=== PATIENT | female | born 2000 | race Caucasian/White ===

== ENCOUNTER 2022-08-30 23:14 | Emergency (ER) | payer MEDICAID ==
[~2022-08-30] VITALS: Ht 149.9 cm; Wt 75.7 kg
[2022-08-30 23:34] VITALS: BP_SYST 127
--- NOTE | 2022-08-30 23:34 | NUR ---
Patient triaged and placed in ER bed 7. Bed placed in lowest position and side rails up. Report given to [facility] RN for continuity of care. Instructed patient to notify ED staff for any changes in condition or worsening of symptoms while waiting to be seen by a provider. Patient verbalized understanding.
[2022-08-31] MEDS ORDERED: LIDOCAINE 2%, 20 ML MDV INJ ONE (00:15)
[2022-08-31] MEDS ORDERED: BACITRACIN ZINC 15 GM TOPICAL OINTMENT TP ONE (00:15)
--- NOTE | 2022-08-31 00:19 | NUR ---
ER at bedside examining patient.
[2022-08-31] MEDS ORDERED: BACITRACIN 1 GM OINT TP ONE (01:30)
[2022-08-31] MEDS ORDERED: BACI15OI13 TP (01:49)
[2022-08-31 02:09] VITALS: BP_SYST 122
--- NOTE | 2022-08-31 02:09 | NUR ---
Patient given written and verbal discharge instructions and verbalizes understanding. ER MD discussed with patient the results and treatment provided. Patient in stable condition. ID arm band removed. Rx of BACITRACIN given. Patient educated on pain management and to follow up with PMD. Pain Scale 0/10. Opportunity for questions provided and answered. Medication side effect fact sheet provided.
== END 2022-08-31 02:09 | disposition home or self-care (01) ==
LOC: SED 23:14
DX: S61.210A Laceration without foreign body of right index finger without damage to nail, initial encounter (principal); Z79.899 Other long term (current) drug therapy; W26.0XXA Contact with knife, initial encounter; Y93.89 Activity, other specified; Y92.89 Other specified places as the place of occurrence of the external cause; Y99.8 Other external cause status
CPT/HCPCS: 99282; 12001; J2001